=== PATIENT | male | born 1930 | race Caucasian/White ===

== ENCOUNTER 2018-01-22 19:20 | Emergency (ER) | payer OTHER, MEDICARE ==
[2018-01-22 21:01] LABS: Absolute Monocytes 0.7 K/uL (0.1-1.3); Absolute Neutrophil 4.7 K/uL (1.8-8.0); Basophils % 0.2 % (0-1.3); Eosinophils % 0.3 % (0-4.4); Hematocrit 39.1 % (39.6-49.0); Lymphocytes % 15.8 % (15.3-44.8); MCH 32.1 pg (27.0-35.0); MCV 93.5 fL (80-100); MPV 7.7 fL (7.6-11.3); Monocytes % 11.2 % (3.3-12.3); RBC Red Blood Cell Count 4.19 M/uL (4.33-5.43)
[2018-01-22 21:07] LABS: Potassium 3.5 mEq/L (3.6-5.0)
[2018-01-22 21:13] LABS: Albumin 4.1 g/dL (3.2-5.5); Bilirubin Direct 0.1 mg/dL (0-0.2); Bilirubin Total 0.6 mg/dL (0.3-1.2); Magnesium 1.9 mg/dL (1.8-2.5); Protein, Total 6.6 g/dL (6.0-8.3)
[2018-01-22] MEDS ORDERED: POTASSIUM CL SA 10 MEQ TAB PO ONE (21:27)
--- NOTE | 2018-01-22 21:32 | RAD REPORT ---
EXAM DESCRIPTION: RAD - Chest Single View - 01/22/2018 9:14 pm CLINICAL HISTORY: Chest pain, shortness of breath, syncope COMPARISON: September 2016 TECHNIQUE: AP portable chest image was obtained 2102 hours . FINDINGS: Baseline fibrotic lung pattern noted. Lung markings are similar to comparison. No failure, infiltrate or acute lung pattern. Heart and vasculature are normal. No measurable pleural effusion a nd no pneumothorax. No gross bony abnormality seen. No acute aortic findings suspected. IMPRESSION: Chronic interstitial lung disease similar to comparison. Severity of interstitial disease could mask early edema or infiltrate.
[2018-01-22 21:45] LABS: Protime INR 0.93
[2018-01-22] MEDS ORDERED: NA CHLORIDE 0.9% 100 ML IV ONE (22:28)
[2018-01-22] MEDS ORDERED: FOLIC ACID 5 MG/ML VIAL ONE (22:29)
[2018-01-22] MEDS ORDERED: NA CHLORIDE 0.9% 1,000 ML ONE (22:52)
[2018-01-22] MEDS ORDERED: NA CHLORIDE 0.9% 500 ML ONE (22:52)
--- NOTE | 2018-01-22 23:55 | EDPHYS ---
Physician Documentation [facility] Name: Sean Alvarez Age: 87 yrs Sex: Male : 1930 Arrival Date: 01/22/2018 Time: 19:26 Bed 17 Private MD: ED Physician Gomez Avelar HPI: 01/22 21:25 This 87 yrs old Male presents to ER via EMS with complaints of near syncope. annamarie 21:25 The patient has experienced near-syncope, almost passed out. Onset: The annamarie symptoms/episode began/occurred just prior to arrival. Duration: This was a single episode, that lasted 3 minute(s). Context: the episode(s) was witnessed, by family. Associated injury: The patient did not suffer any apparent associated injury. Associated signs and symptoms: The patient has no apparent associated signs or symptoms. Current symptoms: Currently, the patient is not experiencing any symptoms, the patient feels back to baseline. The patient has not experienced similar symptoms in the past. Historical: - Allergies: 19:30 No Known Allergies; aj - Home Meds: 19:30 BP MEDICATION [Active]; - PMHx: 19:30 Arthritis; Prostate Cancer; Hypertension; aj - Immunization history:: Adult Immunizations up to date. - Social history:: Smoking status: Patient/guardian denies using tobacco, Patient uses alcohol, occasionally. - Family history:: not pertinent. ROS: 21:25 Constitutional: Negative for fever, chills, and weight loss, Eyes: Negative for injury, annamarie pain, redness, and discharge, ENT: Negative for injury, pain, and discharge, Neck: Negative for injury, pain, and swelling, Cardiovascular: Negative for chest pain, palpitations, and edema, Respiratory: Negative for shortness of breath, cough, wheezing, and pleuritic chest pain, Abdomen/GI: Negative for abdominal pain, nausea, vomiting, diarrhea, and constipation, Back: Negative for injury and pain, : Negative for injury, bleeding, discharge, and swelling, MS/Extremity: Negative for injury and deformity, Skin: Negative for injury, rash, and discoloration, Psych: Negative for depression, anxiety, suicide ideation, homicidal ideation, and hallucinations, Allergy/Immunology: Negative for hives, rash, and allergies, Hematologic/Lymphatic: Negative for swollen nodes, abnormal bleeding, and unusual bruising. 21:25 Skin: Positive for diaphoresis. 21:25 Neuro: Positive for near syncope, weakness. Exam: 21:25 Constitutional: This is a well developed, well nourished patient who is awake, alert, annamarie and in no acute distress. Head/Face: Normocephalic, atraumatic. Eyes: Pupils equal round and reactive to light, extra-ocular motions intact. Lids and lashes normal. Conjunctiva and sclera are non-icteric and not injected. Cornea within normal limits. Periorbital areas with no swelling, redness, or edema. ENT: Nares patent. No nasal discharge, no septal abnormalities noted. Tympanic membranes are normal and external auditory canals are clear. Oropharynx with no redness, swelling, or masses, exudates, or evidence of obstruction, uvula midline. Mucous membranes moist. Neck: Trachea midline, no thyromegaly or masses palpated, and no cervical lymphadenopathy. Supple, full range of motion without nuchal rigidity, or vertebral point tenderness. No Meningismus. Chest/axilla: Normal chest wall appearance and motion. Nontender with no deformity. No lesions are appreciated. Cardiovascular: Regular rate and rhythm with a normal S1 and S2. No gallops, murmurs, or rubs. Normal PMI, no JVD. No pulse deficits. Respiratory: Lungs have equal breath sounds bilaterally, clear to auscultation and percussion. No rales, rhonchi or wheezes noted. No increased work of breathing, no retractions or nasal flaring. Abdomen/GI: Soft, non-tender, with normal bowel sounds. No distension or tympany. No guarding or rebound. No evidence of tenderness throughout. Back: No spinal tenderness. No costovertebral tenderness. Full range of motion. Male : Normal genitalia with no discharge or lesions. Skin: Warm, dry with normal turgor. Normal color with no rashes, no lesions, and no evidence of cellulitis. MS/ Extremity: Pulses equal, no cyanosis. Neurovascular intact. Full, normal range of motion. Neuro: Awake and alert, GCS 15, oriented to person, place, time, and situation. Cranial nerves II-XII grossly intact. Motor strength 5/5 in all extremities. Sensory grossly intact. Cerebellar exam normal. Normal gait. Psych: Awake, alert, with orientation to person, place and time. Behavior, mood, and affect are within normal limits. 21:25 Neuro: Orientation: is normal, appropriate for stated age, no acute changes, Mentation: is normal, appropriate for stated age, no acute changes, Memory: is normal, appropriate for stated age, no acute changes, Cerebellar function: is grossly normal, is grossly normal based on the patient's age, no acute changes, normal finger to nose testing, heel to michelle testing is normal, Motor: moves all fours, Sensation: no obvious gross deficits, appropriate no acute changes, Gait: not tested. Deep tendon reflexes are 2+ (normal) in the bilateral brachioradialis, bicep, tricep and patellar and Achilles tendons, seizure activity, is not displayed by the patient. 23:55 Musculoskeletal/extremity: ROM: no acute changes, Circulation is intact in all annamarie extremities. Sensation intact. DVT Exam: No signs of deep vein thrombosis. no pain, no swelling, no tenderness, negative Homans' sign noted on exam, no appreciated bluish discoloration, no erythema, no increased warmth. Vital Signs: 19:31 BP 132 / 69; Pulse 70; Resp 18; Temp 98.3; Pulse Ox 97% ; Weight 77.11 kg; bp 20:30 BP 121 / 60; Pulse 70; Resp 16; Pulse Ox 100% ; bp 21:54 BP 140 / 72; Pulse 65; Resp 18; Pulse Ox 99% on R/A; mt 22:29 BP 145 / 69 Supine; Pulse 68; mt 22:29 BP 147 / 77 Sitting; Pulse 72; mt 22:29 BP 162 / 82 Standing; Pulse 98; mt 23:00 BP 147 / 70; Pulse 72; Resp 18; Pulse Ox 99% on R/A; mt 01/23 00:03 BP 157 / 71 Supine; Pulse 74; mt 00:03 BP 175 / 87 Sitting; Pulse 80; mt 00:03 BP 176 / 91 Standing; Pulse 92; mt MDM: 01/22 21:12 Patient medically screened. [facility] 21:25 Data reviewed: vital signs, nurses notes, lab test result(s), EKG, radiologic studies, [facility] CT scan, plain films. 01/22 20:30 Order name: Basic Metabolic Panel; Complete Time: 21:20 bp 01/22 20:30 Order name: BNP; Complete Time: 23:52 bp 01/22 20:30 Order name: CBC with Diff; Complete Time: 21:20 bp 01/22 20:30 Order name: Ckmb; Complete Time: 21:20 bp 01/22 20:30 Order name: CPK; Complete Time: 21:20 bp 01/22 20:30 Order name: LFT's; Complete Time: 21:20 bp 01/22 20:30 Order name: Magnesium; Complete Time: 21:20 bp 01/22 20:30 Order name: PT-INR; Complete Time: 21:46 bp 01/22 20:30 Order name: Ptt, Activated; Complete Time: 21:46 bp 01/22 20:30 Order name: Troponin (emerg Dept Use Only); Complete Time: 21:20 bp 01/22 20:30 Order name: XRAY Chest (1 view); Complete Time: 21:46 bp 01/22 20:30 Order name: CT Head Brain wo Cont bp 01/22 20:30 Order name: EKG; Complete Time: 20:48 bp 01/22 20:30 Order name: Cardiac monitoring; Complete Time: 20:30 bp 01/22 20:30 Order name: EKG - Nurse/Tech; Complete Time: 20:30 bp 01/22 20:30 Order name: IV Saline Lock; Complete Time: 20:30 bp 01/22 20:30 Order name: Labs collected and sent; Complete Time: 20:31 bp 01/22 20:30 Order name: O2 Per Protocol; Complete Time: 20:30 bp 01/22 20:30 Order name: O2 Sat Monitoring; Complete Time: 20:30 bp 01/22 22:18 Order name: Orthostatic Blood Pressure; Complete Time: 22:26 annamarie 01/22 22:38 Order name: PO challenge; Complete Time: 22:44 annamarie 01/22 23:53 Order name: Orthostatic Blood Pressure; Complete Time: 00:04 annamarie Administered Medications: 21:30 Drug: Potassium Chloride 20 mEq Route: PO; bp 21:40 Follow up: Response: No adverse reaction bp 22:33 Drug: foLIC Acid 1 mg Route: IVPB; Site: left antecubital; bp 01/23 00:11 Follow up: IV Status: Completed infusion; IV Intake: 100ml bp 01/22 23:09 Drug: NS 0.9% 500 ml Route: IV; Rate: bolus; Site: left antecubital; bp 01/23 00:11 Follow up: IV Status: Completed infusion; IV Intake: 500ml bp 01/22 23:09 Drug: NS 0.9% 1000 ml Route: IV; Rate: 125 ml/hr; Site: left antecubital; bp 01/23 00:11 Follow up: IV Status: Completed infusion bp 00:00 Drug: Aspirin 162 mg Route: PO; bp 00:12 Follow up: Response: Medication administered at discharge. bp Disposition: 01/22/18 23:54 Discharged to Home. Impression: Syncope and collapse - vasovagal, Volume depletion - mild. - Condition is Stable. - Discharge Instructions: Near-Syncope, Weakness, Near-Syncope, [id number], Weakness, [id number], Aspirin and Your Heart. - Medication Reconciliation Form, Thank You Letter, Antibiotic Education, Prescription Opioid Use form. - Follow up: Private Physician; When: 2 - 3 days; Reason: Recheck today's complaints, Continuance of care, Re-evaluation by your physician. Follow up: Baldo Harris MD; When: 1 - 2 days; Reason: Recheck today's complaints, Continuance of care, Re-evaluation by your physician. - Problem is new. - Symptoms have improved. Signatures: Dispatcher [employer] Zita Beyer, RN Gomez Parker MD MD cha Peltier, Brian, RN RN bp
--- NOTE | 2018-01-22 23:55 | ER ---
Nurse's Notes [facility] Name: Sean Alvarez Age: 87 yrs Sex: Male : 1930 Arrival Date: 01/22/2018 Time: 19:26 Bed 17 Private MD: Diagnosis: Syncope and collapse-vasovagal;Volume depletion-mild Presentation: 01/22 19:28 Presenting complaint: EMS states: HE WAS DOING A WOUND DRESSING ON HIS AND GOT aj LIGHT HEADED AND HAD TO SIT DOWN ABRUPTLY. Transition of care: patient was not received from another setting of care. Onset of symptoms was January 22, 2018 at 19:00. Care prior to arrival: IV initiated. 18 GA, in the left antecubital area, Glucose check: 226 Oxygen administered. via nasal cannula. 19:28 Method Of Arrival: EMS: [facility] 19:28 Acuity: DARBY 3 aj Triage Assessment: 19:31 General: Appears in no apparent distress. comfortable, Behavior is calm, cooperative, bp appropriate for age. Pain: Denies pain. Neuro: Level of Consciousness is awake, alert, obeys commands, Oriented to person, place, time, situation, Appropriate for age Supervisor Harvesting are equal bilaterally Moves all extremities. Full function Gait is steady, Speech is normal, Facial symmetry appears normal, Pupils are PERRLA, Intact. Historical: - Allergies: 19:30 No Known Allergies; aj - Home Meds: 19:30 BP MEDICATION [Active]; aj - PMHx: 19:30 Arthritis; Prostate Cancer; Hypertension; aj - Immunization history:: Adult Immunizations up to date. - Social history:: Smoking status: Patient/guardian denies using tobacco, Patient uses alcohol, occasionally. - Family history:: not pertinent. Screenin:51 Abuse screen: Denies threats or abuse. Denies injuries from another. Nutritional bp screening: No deficits noted. Tuberculosis screening: No symptoms or risk factors identified. Fall Risk None identified. Assessment: 19:30 Reassessment: PER EMS, PT HYPOTENSIVE AND DIZZY ON SCENE. PT STATES ALL S/S NOW bp RESOLVED. General: Appears in no apparent distress. comfortable, Behavior is calm, cooperative, appropriate for age. Pain: Denies pain. Neuro: Level of Consciousness is awake, alert, obeys commands, Oriented to person, place, time, situation, Appropriate for age Supervisor Harvesting are equal bilaterally Moves all extremities. Full function Gait is steady, Speech is normal, Facial symmetry appears normal, Pupils are PERRLA, Intact. 20:31 Reassessment: SYNCOPE WORK UP IN PROCESS, PT REMAINS NEURO INTACT. bp 22:07 Reassessment: PT TO CT WITH TRAINING DEVELOPMENT MANAGER. bp 01/23 00:12 Reassessment: PT D/C HOME AMBULATORY WITH FAMILY, DX WITH SYNCOPE AND COLLAPSE - bp VASOVAGAL. TO F/U WITH PCP. Vital Signs: 01/22 19:31 BP 132 / 69; Pulse 70; Resp 18; Temp 98.3; Pulse Ox 97% ; Weight 77.11 kg; bp 20:30 BP 121 / 60; Pulse 70; Resp 16; Pulse Ox 100% ; bp 21:54 BP 140 / 72; Pulse 65; Resp 18; Pulse Ox 99% on R/A; mt 22:29 BP 145 / 69 Supine; Pulse 68; mt 22:29 BP 147 / 77 Sitting; Pulse 72; mt 22:29 BP 162 / 82 Standing; Pulse 98; mt 23:00 BP 147 / 70; Pulse 72; Resp 18; Pulse Ox 99% on R/A; mt 01/23 00:03 BP 157 / 71 Supine; Pulse 74; mt 00:03 BP 175 / 87 Sitting; Pulse 80; mt 00:03 BP 176 / 91 Standing; Pulse 92; mt ED Course: 01/22 19:26 Patient arrived in ED. aj 19:28 Zita Bunn, RN is Primary Nurse. aj 19:29 Triage completed. aj 19:35 Arm band placed on. bp 19:37 EKG done, by ED staff, reviewed by Gomez Avelar MD. mt 19:51 No provider procedures requiring assistance completed. Maintain EMS IV. Dressing bp intact. Good blood return noted. Site clean \T\ dry. Gauge \T\ site: 18 GAUGE LEFT AC. 19:51 Patient has correct armband on for positive identification. Bed in low position. Call bp light in reach. Side rails up X2. Adult w/ patient. 21:07 X-ray completed. Portable x-ray completed in exam room. Patient tolerated procedure kc2 well. 21:09 XRAY Chest (1 view) In Process Unspecified. EDMS 21:12 Gomez Avelar MD is Attending Physician. annamarie 22:[address] via wheelchair. kc3 22:14 CT Head Brain wo Cont In Process Unspecified. EDMS 23:54 Baldo Harris MD is Referral Physician. [facility] 01/23 00:13 IV discontinued, intact, bleeding controlled, No redness/swelling at site. Pressure bp dressing applied. Administered Medications: 01/22 21:30 Drug: Potassium Chloride 20 mEq Route: PO; bp 21:40 Follow up: Response: No adverse reaction bp 22:33 Drug: foLIC Acid 1 mg Route: IVPB; Site: left antecubital; bp 01/23 00:11 Follow up: IV Status: Completed infusion; IV Intake: 100ml bp 01/22 23:09 Drug: NS 0.9% 500 ml Route: IV; Rate: bolus; Site: left antecubital; bp 01/23 00:11 Follow up: IV Status: Completed infusion; IV Intake: 500ml bp 01/22 23:09 Drug: NS 0.9% 1000 ml Route: IV; Rate: 125 ml/hr; Site: left antecubital; bp 01/23 00:11 Follow up: IV Status: Completed infusion bp 00:00 Drug: Aspirin 162 mg Route: PO; bp 00:12 Follow up: Response: Medication administered at discharge. bp Intake: 00:11 IV: 500ml; Total: 500ml. bp 00:11 IV: 100ml; Total: 600ml. bp Outcome: 01/22 23:54 Discharge ordered by . [facility] 01/23 00:13 Discharged to home via wheelchair, with family. bp Condition: stable Discharge instructions given to patient, family, Instructed on discharge instructions, follow up and referral plans. Demonstrated understanding of instructions, follow-up care. 00:14 Patient left the ED. bp Signatures: Dispatcher [employer] EDMS Zita Bunn, RN Gomez Parker MD MD cha Carr, Kelsie kc2 Deborah Isabel mt, Brian, RN RN bp Campbell, Kim kc3 Corrections: (The following items were deleted from the chart) 01/22 19:52 19:31 Pulse 70bpm; Resp 18bpm; Pulse Ox 97%; Temp 98.3F; 77.11 kg; bp bp
[2018-01-23] MEDS ORDERED: ASPIRIN 81 MG CHEWABLE TABLET ONE (00:01)
[2018-01-23 00:46] VITALS: TEMP 98.3
[2018-01-23 00:49] VITALS: O2SAT 99
[2018-01-23 00:52] VITALS: BP 175/87
--- NOTE | 2018-01-23 06:24 | RAD REPORT ---
EXAM DESCRIPTION: CT - Head Brain Wo Cont - 01/23/2018 1:36 am CLINICAL HISTORY: Dizziness, syncope A preliminary written report was provided at the time of the study, and the report was reviewed prio r to final dictation. COMPARISON: None. TECHNIQUE: Axial 5 mm thick images of the head were obtained without IV contrast. All CT scans are performed using dose optimization technique as appropriate and may include automated exposure control or mA/KV adjustment according to patient size. FINDINGS: No intracranial hemorrhage, mass, edema or shift of mid-line structures. No acute cortical based infarction. Moderate severity atrophy and chronic ischemic change are present. Physiologic and arterial calcifications are present. No abnormal extra-axial fluid collections. Ventricles are in pr oportion to volume loss. Mastoid air cells and visualized portions of the paranasal sinuses are clear. No acute bony findings. IMPRESSION: Negative non-contrast CT head examination for acute finding. Moderate severity atrophy and chronic ischemic change.
--- NOTE | 2018-01-23 08:28 | EKG ---
Test Date: 2018-01-22 Test Time: 19:31:40 Career Orientation Teacher: PEGGY MEASUREMENT RESULTS: Intervals: Rate: 71 ND: 218 QRSD: 176 QT: 442 QTc: 480 Gardners: P: 79 ND: 218 QRS: -70 T: 66 INTERPRETIVE STATEMENTS: Sinus rhythm with 1st degree AV block Right bundle branch block Left anterior fascicular block Bifascicular block Left ventricular hypertrophy with repolarization abnormality Cannot rule out Septal infarct, age undetermined Abnormal ECG Compared to ECG 09/16/2016 14:11:48 First degree AV block now present Left ventricular hypertrophy now present Early repolarization now present Myocardial infarct finding now present Bifascicular block still present Electronically Signed On 01-23-18 08:25:44 CDT by Dread Jose
== END 2018-01-23 00:14 | disposition home or self-care (01) ==
LOC: ER 19:20
DX: E86.9 Volume depletion, unspecified (principal); I10 Essential (primary) hypertension; Z85.46 Personal history of malignant neoplasm of prostate
CPT/HCPCS: 36415; 70450; 71045; 80048; 80076; 82550; 82553; 83735; 83880; 84484; 85025; 85610; 85730; 93005; 96365; 96366; 99284; J7030; 96361